=== PATIENT | male | born 1930 | race Caucasian/White ===

== ENCOUNTER 2017-02-02 02:57 | Emergency (ER) | payer BC ==
[~2017-02-02] VITALS: Ht 182.9 cm; Wt 104.3 kg
[2017-02-02 03:12] VITALS: BP 119/93; PULSE 100; RESP 18; TEMP 97.3; O2SAT 98
--- NOTE | 2017-02-02 04:30 | NUR ---
PT PLACED IN BED 7, CHANGED IN GOWN, SIDE RAILS UP, SAFETY PRECAUTIONS IN PLACE.
--- NOTE | 2017-02-02 04:35 | NUR ---
ER Dr. JEWELL at bedside examining patient.
--- NOTE | 2017-02-02 04:50 | NUR ---
PT C/O SARAVIA CATHETER NOT DRAINING SINCE 12AM W/ SHARP PAIN IN HIS LOWER ABD 10/10, NON-RADIATING. NO N/V, A/OX4, AFEBRILE. SARAVIA BAG BELOW BLADDER W/ YELLOW PINK URINE. SAFETY PRECAUTIONS IN PLACE, WILL CONTINUE TO MONITOR.
[2017-02-02 04:53] LABS: BILIRUBIN,URINE NEGATIVE (NEGATIVE); BLOOD, URINE 3+ (NEGATIVE); CLARITY/URINE HAZY (CLEAR); COLOR,URINE YELLOW (YELLOW); GLUCOSE,URINE NEGATIVE (NEGATIVE); KETONES,URINE NEGATIVE (NEGATIVE); LEUKOCYTE ESTERASE ,URINE 1+ (NEGATIVE); NITRITE, URINE NEGATIVE (NEGATIVE); PROTEIN URINE NEGATIVE (NEGATIVE); UROBILINOGEN,URINE 0.2 (0.2-1.0)
[2017-02-02 05:07] LABS: BACTERIA,URINE MODERATE /HPF (None Seen); MUCUS,URINE None Seen /LPF (None Seen); RBC,URINE >100 /HPF (0-3); WBC,URINE 20-50 /HPF (0-3)
[2017-02-02 05:25] VITALS: BP 119/93; PULSE 98; RESP 18; TEMP 98.2; O2SAT 98
--- NOTE | 2017-02-02 05:25 | NUR ---
Patient given written and verbal discharge instructions and verbalizes understanding. ER MD DR. JEWELL discussed with patient the results and treatment provided. Patient in stable condition. ID arm band removed. Rx of CIPRO given. Patient educated on pain management and to follow up with PMD. Pain Scale 1/10, STATES PAIN IS TOLERABLE, AMBULATED W/ STEADY GAIT W/ WALKER. Opportunity for questions provided and answered.
== END 2017-02-02 05:25 | disposition home or self-care (01) ==
LOC: SED 02:57
DX: T83.091A Other mechanical complication of indwelling urethral catheter, initial encounter (principal); N39.0 Urinary tract infection, site not specified; I10 Essential (primary) hypertension; N40.0 Benign prostatic hyperplasia without lower urinary tract symptoms; Z86.718 Personal history of other venous thrombosis and embolism
CPT/HCPCS: 81000-TC; 87086; 87186-TC; 99284

== ENCOUNTER 2017-02-05 21:27 | Emergency (ER) | payer BC ==
[~2017-02-05] VITALS: Ht 182.9 cm; Wt 104.3 kg
--- NOTE | 2017-02-05 21:40 | NUR ---
Patient to ER bed 6 to gown for evaluation. Side rails up. Report given to Nasreen BUSBY.
--- NOTE | 2017-02-05 21:48 | NUR ---
Patient to ER C/O bloody urine in Chow. Patient had a Chow cath placed about 4 days ago and states that he stood up and the tubing was pulled, since then he noticed bright red blood and significant decrease in urine output. AAOx4, unlabored breathing, no signs of acute distress.
--- NOTE | 2017-02-05 21:50 | NUR ---
ER MD Avila at bedside for evaluation
[2017-02-05 21:57] VITALS: BP 122/59; PULSE 85; RESP 18; TEMP 98.3; O2SAT 97
--- NOTE | 2017-02-05 22:08 | NUR ---
# 16 FR Chow catheter with use of sterile technique. Immediate return of 600 cc BLOODY URINE urine noted. Bedside drainage bag placed below level of bladder. Urine sample collected and sent to lab. Pt tolerated procedure well.
[2017-02-05 22:26] VITALS: BP 125/62; PULSE 80; RESP 18; TEMP 98.1; O2SAT 97
--- NOTE | 2017-02-05 22:26 | NUR ---
Patient given written and verbal discharge instructions and verbalizes understanding. ER MD Avila discussed with patient the results and treatment provided. Patient in stable condition. ID arm band removed. Patient educated on pain management and to follow up with PMD. Pain Scale 0/10. Opportunity for questions provided and answered.
[2017-02-06] MEDS ORDERED: APIX5TAB PO (13:02)
[2017-02-06] MEDS ORDERED: LEVO50TA77 PO (13:02)
[2017-02-06] MEDS ORDERED: HYT1 PO (13:02)
[2017-02-06] MEDS ORDERED: DUTA0.5C PO (13:02)
[2017-02-06] MEDS ORDERED: CIPR-211 PO (13:02)
[2017-02-06] MEDS ORDERED: CELE200C PO (13:02)
[2017-02-06] MEDS ORDERED: HYDR-4037 PO (14:17)
[2017-02-06] MEDS ORDERED: LOVA20TA2 PO (14:17)
[2017-02-06] MEDS ORDERED: PLE5 PO (14:17)
== END 2017-02-05 22:26 | disposition home or self-care (01) ==
LOC: SED 21:27
DX: T83.091A Other mechanical complication of indwelling urethral catheter, initial encounter (principal); I10 Essential (primary) hypertension; N40.0 Benign prostatic hyperplasia without lower urinary tract symptoms; Z86.718 Personal history of other venous thrombosis and embolism
CPT/HCPCS: 99284

== ENCOUNTER 2017-02-06 08:44 | Inpatient (IN) | payer BC ==
[~2017-02-06] VITALS: Ht 188 cm; Wt 103.9 kg
[2017-02-06 08:47] VITALS: BP_SYST 152
[2017-02-06 09:40] LABS: BASOPHILS # (AUTO) 0.2 K/uL (0.0-0.2); BASOPHILS % (AUTO) 1.3 % (0.0-2.0); EOSINOPHILS % (AUTO) 0.3 % (0.0-4.0); HEMATOCRIT 38.2 % (36-54); HEMOGLOBIN 12.7 g/dL (14.0-18.0); LYMPHOCYTES # (AUTO) 0.6 K/uL (1.0-5.5); LYMPHOCYTES % (AUTO) 5.5 % (20.5-51.5); MEAN CORPUSCULAR HEMOGLOBIN 31 pg (27-31); MEAN CORPUSCULAR HGB CONC 33 % (32-36); MEAN CORPUSCULAR VOLUME 94 fL (79.0-98.0); MONOCYTES # (AUTO) 0.9 K/uL (0.0-1.0); MONOCYTES % (AUTO) 7.7 % (1.7-9.3); NEUTROPHILS # (AUTO) 10.1 K/uL (1.8-7.7); NEUTROPHILS % (AUTO) 85.2 % (40.0-70.0); PLATELET COUNT (AUTO) 249 K/uL (130-430); RED BLOOD CELL COUNT(AUTO) 4.06 MIL/uL (4.2-6.2); RED CELL DISTRIBUTION WIDTH 13.4 % (9.0-15.0); WHITE BLOOD COUNT (AUTO) 11.8 K/uL (4.8-10.8)
[2017-02-06 09:56] LABS: ANION GAP 12 (5-15); CALCIUM 9.3 mg/dL (8.4-11.0); CHLORIDE 107 mmol/L (98-107); CREATININE 1.92 mg/dL (0.55-1.30); GLUCOSE 156 mg/dL (70-99); POTASSIUM 4.9 mmol/L (3.5-5.1); SODIUM SERUM 141 mmol/L (136-145); UREA NITROGEN, BLOOD 25 mg/dL (8-21)
[2017-02-06 09:58] LABS: ALANINE AMINOTRANSFERASE 22 U/L (12-78); ALBUMIN 3.9 g/dL (3.4-4.8); ASPARTATE AMINOTRANSFERASE 17 U/L (10-37); INR 1.1 (0.80-1.20); PROTHROMBIN TIME 11.8 SECS (9.5-12.5); TOTAL BILIRUBIN 0.5 mg/dL (0.0-1.0)
[2017-02-06 11:17] LABS: BILIRUBIN,URINE 1+ (NEGATIVE); BLOOD, URINE 3+ (NEGATIVE); CLARITY/URINE CLOUDY (CLEAR); COLOR,URINE RED (YELLOW); GLUCOSE,URINE NEGATIVE (NEGATIVE); KETONES,URINE NEGATIVE (NEGATIVE); LEUKOCYTE ESTERASE ,URINE 1+ (NEGATIVE); NITRITE, URINE NEGATIVE (NEGATIVE); PROTEIN URINE 3+ (NEGATIVE); UROBILINOGEN,URINE 0.2 (0.2-1.0)
[2017-02-06 11:27] LABS: BACTERIA,URINE FEW /HPF (None Seen); RBC,URINE >100 /HPF (0-3)
[2017-02-06] MEDS ORDERED: LEVO50TA77 PO (13:02)
[2017-02-06] MEDS ORDERED: CELE200C PO (13:02)
[2017-02-06] MEDS ORDERED: HYT1 PO (13:02)
[2017-02-06] MEDS ORDERED: DUTA0.5C PO (13:02)
[2017-02-06] MEDS ORDERED: APIX5TAB PO (13:02)
[2017-02-06] MEDS ORDERED: CIPR-211 PO (13:02)
[2017-02-06] MEDS ORDERED: LOVA20TA2 PO (14:17)
[2017-02-06] MEDS ORDERED: HYDR-4037 PO (14:17)
[2017-02-06] MEDS ORDERED: PLE5 PO (14:17)
[2017-02-06 14:55] VITALS: BP_SYST 145
[2017-02-06 16:00] VITALS: BP_SYST 124
[2017-02-06 19:40] VITALS: BP_SYST 150
[2017-02-06] MEDS ORDERED: traMADol HCL HCL 50 MG TABLET (ULTRAM) PO PRN (23:00)
[2017-02-06] MEDS ORDERED: cloNIDine HCL 0.1 MG TABLET PO PRN (23:00)
[2017-02-06] MEDS ORDERED: ACETAMINOPHEN 325 MG TABLET PO PRN (23:00)
[2017-02-06] MEDS ORDERED: ONDANSETRON HCL 4 MG/2 ML VIAL IVP PRN (23:00)
[2017-02-06] MEDS: 0.45% NACL 1,000 ML IV SCH (23:16)
[2017-02-07] VITALS (7 sets, daily range): BP systolic 125–145
[2017-02-07] MEDS ORDERED: cefTRIAXone 1 GM VIAL ONE (00:40)
[2017-02-07] MEDS: LEVOTHYROXINE SODIUM 0.05 MG TABLET PO SCH (06:14)
[2017-02-07 06:16] LABS: BASOPHILS % (AUTO) 0.5 % (0.0-2.0); EOSINOPHILS # (AUTO) 0.4 K/uL (0.0-0.4); EOSINOPHILS % (AUTO) 5.9 % (0.0-4.0); HEMATOCRIT 34.2 % (36-54); HEMOGLOBIN 10.9 g/dL (14.0-18.0); LYMPHOCYTES # (AUTO) 1.4 K/uL (1.0-5.5); LYMPHOCYTES % (AUTO) 19.4 % (20.5-51.5); MEAN CORPUSCULAR HEMOGLOBIN 30 pg (27-31); MEAN CORPUSCULAR HGB CONC 32 % (32-36); MEAN CORPUSCULAR VOLUME 95 fL (79.0-98.0); MONOCYTES # (AUTO) 0.9 K/uL (0.0-1.0); MONOCYTES % (AUTO) 12.3 % (1.7-9.3); NEUTROPHILS # (AUTO) 4.3 K/uL (1.8-7.7); NEUTROPHILS % (AUTO) 61.9 % (40.0-70.0); PLATELET COUNT (AUTO) 213 K/uL (130-430); RED CELL DISTRIBUTION WIDTH 13.6 % (9.0-15.0)
[2017-02-07 06:33] LABS: ALANINE AMINOTRANSFERASE 17 U/L (12-78); ALBUMIN 3.1 g/dL (3.4-4.8); ANION GAP 7 (5-15); ASPARTATE AMINOTRANSFERASE 14 U/L (10-37); CALCIUM 8.5 mg/dL (8.4-11.0); CHLORIDE 109 mmol/L (98-107); CREATININE 1.31 mg/dL (0.55-1.30); GLUCOSE 100 mg/dL (70-99); SODIUM SERUM 141 mmol/L (136-145); THYROID STIMULATING HORMONE 3.16 uIu/mL (0.34-4.82); TOTAL BILIRUBIN 0.4 mg/dL (0.0-1.0); TOTAL PROTEIN, SERUM 6.1 g/dL (6.4-8.3); UREA NITROGEN, BLOOD 18 mg/dL (8-21)
[2017-02-07 06:36] LABS: IRON (SERUM) 55 mcg/dL (59-158)
[2017-02-07 06:37] LABS: TOTAL IRON BIND. CAPACITY 183 ug/dL (250-450)
[2017-02-07] MEDS: CELECOXIB 200 MG CAPSULE PO SCH (08:55)
[2017-02-07] MEDS: DUTASTERIDE 0.5 MG CAPSULE (AVODART) PO SCH (08:57)
[2017-02-07] MEDS: hydrALAZINE HCL 10 MG TABLET PO SCH ×3 (08:57→21:52)
[2017-02-07] MEDS ORDERED: CIPROFLOXACIN HCL 500 MG TABLET PO SCH (09:00)
[2017-02-07] MEDS: 0.45% NACL 1,000 ML IV SCH ×2 (11:46→21:53)
[2017-02-07] MEDS ORDERED: SIMVASTATIN 10 MG TABLET PO SCH (18:00)
[2017-02-07] MEDS ORDERED: amLODIPine BESYLATE 10 MG TABLET PO SCH (21:00)
[2017-02-07] MEDS ORDERED: TERAZOSIN HCL 1 MG CAPSULE (HYTRIN) PO SCH (21:00)
[2017-02-07] MEDS: cefTRIAXone 1 GM IVPB PREMIX 50 ML IV SCH (21:52)
[2017-02-07] MEDS ORDERED: TERAZOSIN HCL 5 MG CAPSULE (HYTRIN) ONE (22:33)
[2017-02-08 03:44] VITALS: BP_SYST 135
[2017-02-08] MEDS: LEVOTHYROXINE SODIUM 0.05 MG TABLET PO SCH (06:10)
[2017-02-08] MEDS: 0.45% NACL 1,000 ML IV SCH (06:11)
[2017-02-08 08:00] VITALS: BP_SYST 143
[2017-02-08] MEDS: cefTRIAXone 1 GM IVPB PREMIX 50 ML IV SCH (08:33)
[2017-02-08] MEDS: CELECOXIB 200 MG CAPSULE PO SCH (08:33)
[2017-02-08] MEDS: DUTASTERIDE 0.5 MG CAPSULE (AVODART) PO SCH (08:34)
[2017-02-08] MEDS: hydrALAZINE HCL 10 MG TABLET PO SCH ×2 (08:34→15:32)
[2017-02-08 12:00] VITALS: BP_SYST 144
[2017-02-08 15:15] VITALS: BP_SYST 150
== END 2017-02-08 15:30 | disposition home health service (06) | DRG 689 ==
LOC: SED 08:44 → SMU 14:20
PROVIDERS: ADMIT Internal Medicine; ATTEND Internal Medicine
DX: N30.01 Acute cystitis with hematuria (principal); N17.0 Acute kidney failure with tubular necrosis; D68.59 Other primary thrombophilia; D62 Acute posthemorrhagic anemia; E66.9 Obesity, unspecified; N40.1 Benign prostatic hyperplasia with lower urinary tract symptoms; I10 Essential (primary) hypertension; K57.90 Diverticulosis of intestine, part unspecified, without perforation or abscess without bleeding; B95.8 Unspecified staphylococcus as the cause of diseases classified elsewhere; Z16.23 Resistance to quinolones and fluoroquinolones; Z68.29 Body mass index [BMI] 29.0-29.9, adult; Z86.711 Personal history of pulmonary embolism; Z86.718 Personal history of other venous thrombosis and embolism
CPT/HCPCS: 36415; 80053; 81000-TC; 82306; 83540-TC; 83550-TC; 84443-TC; 85025; 85610-TC; 85730-TC; 87086; 87186-TC; 97116-GP; 99285; J0696; J7030; J7060

== ENCOUNTER 2019-04-13 20:57 | Emergency (ER) | payer BC ==
[~2019-04-13] VITALS: Ht 180.3 cm; Wt 98.4 kg
[~2019-04-13 20:57] MED LIST: APIX5TAB PO; CELE200C PO; DUTA0.5C PO; HYDR-4037 PO; HYT1 PO; LOVA20TA2 PO; PLE5 PO; SYN50 PO
[2019-04-13 21:31] VITALS: BP_SYST 177
[2019-04-13 23:35] VITALS: BP_SYST 177
== END 2019-04-13 23:35 | disposition home or self-care (01) ==
LOC: SED 20:57
DX: N39.0 Urinary tract infection, site not specified (principal); R33.9 Retention of urine, unspecified; R03.0 Elevated blood-pressure reading, without diagnosis of hypertension; I10 Essential (primary) hypertension; N40.0 Benign prostatic hyperplasia without lower urinary tract symptoms; Z86.718 Personal history of other venous thrombosis and embolism; Z79.899 Other long term (current) drug therapy
CPT/HCPCS: 87086; 87186-TC; 99283

== ENCOUNTER 2021-11-03 01:06 | Emergency (ER) | payer BC, MEDICAID ==
[~2021-11-03] VITALS: Ht 182.9 cm; Wt 95.3 kg
[2021-11-03 01:08] VITALS: BP_SYST 101
[2021-11-03] MEDS ORDERED: LIDOCAINE 2%, 20 ML MDV INJ ONE (01:30)
[2021-11-03] MEDS ORDERED: DIPH-TET-PERTUS Vaccine 0.5 ML VIAL (ADACEL) I.M. ONE (01:30)
[2021-11-03] MEDS ORDERED: LIDOCAINE/EPI 2% 1:100000 20 ML VIAL INJ ONE (01:30)
[2021-11-03 05:15] VITALS: BP_SYST 154
[2021-11-03 07:14] LABS: ANION GAP 11 (5-15); CALCIUM 8.3 mg/dL (8.4-11.0); CHLORIDE 105 mmol/L (98-107); GLUCOSE 119 mg/dL (70-99); POTASSIUM 4.3 mmol/L (3.5-5.1); SODIUM SERUM 139 mmol/L (136-145); UREA NITROGEN, BLOOD 30 mg/dL (8-21)
[2021-11-03 07:15] LABS: ALANINE AMINOTRANSFERASE 37 U/L (12-78); ALBUMIN 3.5 g/dL (3.4-4.8); ALCOHOL, BLOOD < 3 mg/dL (<10); ASPARTATE AMINOTRANSFERASE 29 U/L (10-37); CREATININE 1.17 mg/dL (0.55-1.30); TOTAL BILIRUBIN 0.1 mg/dL (0.0-1.0)
[2021-11-03 07:32] LABS: HEMATOCRIT 40.4 % (36-54); HEMOGLOBIN 13.3 g/dL (14.0-18.0); MEAN CORPUSCULAR HEMOGLOBIN 30 pg (27-31); MEAN CORPUSCULAR HGB CONC 33 % (32-36); MEAN CORPUSCULAR VOLUME 91 fL (79.0-98.0); NEUTROPHILS % (AUTO) 69.8 % (40.0-70.0); PLATELET COUNT (AUTO) 313 K/uL (130-430); RED BLOOD CELL COUNT(AUTO) 4.44 MIL/uL (4.2-6.2); RED CELL DISTRIBUTION WIDTH 16.3 % (9.0-15.0); WHITE BLOOD COUNT (AUTO) 9.5 K/uL (4.8-10.8)
[2021-11-03 07:33] LABS: BASOPHILS # (AUTO) 0.1 K/uL (0.0-0.2); BASOPHILS % (AUTO) 0.7 % (0.0-2.0); EOSINOPHILS # (AUTO) 0.4 K/uL (0.0-0.4); EOSINOPHILS % (AUTO) 3.7 % (0.0-4.0); LYMPHOCYTES # (AUTO) 1.4 K/uL (1.0-5.5); MONOCYTES % (AUTO) 10.8 % (1.7-9.3); NEUTROPHILS # (AUTO) 6.6 K/uL (1.8-7.7)
[2021-11-03 07:40] LABS: INR 0.9 (0.80-1.20); PROTHROMBIN TIME 9.9 SECS (9.5-12.5)
== END 2021-11-03 05:15 | disposition home or self-care (01) ==
LOC: SED 01:06
DX: S01.01XA Laceration without foreign body of scalp, initial encounter (principal); Z79.899 Other long term (current) drug therapy; F03.90 Unspecified dementia, unspecified severity, without behavioral disturbance, psychotic disturbance, mood disturbance, and anxiety; W06.XXXA Fall from bed, initial encounter; Y93.89 Activity, other specified; Y92.89 Other specified places as the place of occurrence of the external cause; Y99.8 Other external cause status
CPT/HCPCS: 12002; 36415; 70450; 71045; 76376; 80053; 83605; 84484; 85025; 85610; 90471; 90715; 93005; 99285; G0482